=== PATIENT | male | born 1980 | race Caucasian/White ===

== ENCOUNTER → 2016-09-21 | Outpatient (CLI) | payer OTHER ==
--- NOTE | 2016-09-21 13:46 | KCIC ---
MRI sacrum and coccyx Indication: Fall 2 weeks ago with pain in the sacrum and coccyx. Multiplanar multi sequence imaging of the sacrum and coccyx was performed without contrast. There is a large amount of edema identified in the 1st coccygeal segment. The findings are consistent with a fracture. Sacrococcygeal alignment is normal. No significant displacement is seen. The canal appears to be patent. Impression: Acute fracture involving the 1st coccygeal segment without evidence of displacement. Electronically signed by: Abhilash Frederick MD (Sep 21, 2016 13:44:52)
== END | disposition home or self-care (01) ==
LOC: KCIC MRI 12:50
PROVIDERS: ATTEND Family Medicine
DX: M53.3 Sacrococcygeal disorders, not elsewhere classified (principal)
CPT/HCPCS: 72195

== ENCOUNTER → 2018-08-01 | Day surgery (SDC) | payer OTHER ==
[~2018-08-01] MED LIST: HYDROmorphone 2 MG/ML VIAL IV PRN; LIDOCAINE 1% PF 2 ML VIAL. ID PRN; MORPHINE SULFATE 4 MG/ML VIAL. IV PRN; ONDANSETRON PF 4 MG/2 ML VIAL. IV PRN; PROCHLORPERAZINE 10 MG/2 ML VIAL. IV PRN; PROPOFOL 20 ML IV ONE; RANI150T21 PO; fentaNYL PF VIAL 100 MCG/2 ML VIAL IV PRN
[2018-08-01] MEDS: IV RINGERS,LACTATED 1000ML 1,000 ML IV SCH ×2 (09:21→09:23)
[2018-08-01 10:15] VITALS: BP 123/84
--- NOTE | 2018-08-02 16:08 | PATHOLOGY ---
[facility] Accession Number: [id number] . 01 Material submitted: . DUODENAL BX . 01 Clinical history: . Abdominal pain . 02 Diagnosis: Duodenal biopsies: - Focal mild nonspecific duodenitis. (JPM:payam; 08/02/2018) QMS/08/02/2018 . 02 Comment: Sections of the duodenal biopsy reveal multiple segments of duodenal and small intestine mucosa showing focal mild chronic inflammation with a few admixed neutrophils. Where best oriented, the mucosal villi show no sprue-like changes. (JPM:payam; 08/02/2018) . 02 Electronically signed: . Kenny James MD, Pathologist NPI- [id number] . 01 Gross description: . Received in formalin labeled "Timbo Hernandez, duodenal BX's," are multiple segments of lind soft tissue measuring 2.1 x 0.4 x 0.1 cm in aggregate dimensions. The specimen is filtered and entirely submitted in cassette A1. (TSD; 08/01/2018) TOB/TOB . 02 Pathologist provided ICD-10: R10.9 . 02 CPT . 451613 Specimen Comment: A courtesy copy of this report has been sent to Specimen Comment: [phone], . Specimen Comment: Report sent to / DR HANNAH Specimen Comment: A duplicate report has been generated due to demographic updates. Performed at: 01 [facility] [address], [place] [id number] MD Quintin Donaldson MD Phone: [phone] Performed at: 02 [facility] [address] [place], [place] [id number] MD Kenny James MD Phone: [phone]
== END | disposition home or self-care (01) ==
LOC: ENDOS 05:54
PROVIDERS: ATTEND Internal Medicine Gastroenterology
DX: K29.80 Duodenitis without bleeding (principal)
CPT/HCPCS: 43239; 88305; J2704

== ENCOUNTER → 2018-08-01 | Outpatient (CLI) | payer OTHER ==
[~2018-08-01] VITALS: Ht 177.8 cm; Wt 86.2 kg
[~2018-08-01] MED LIST changes: -HYDROmorphone 2 MG/ML VIAL IV PRN; -LIDOCAINE 1% PF 2 ML VIAL. ID PRN; -MORPHINE SULFATE 4 MG/ML VIAL. IV PRN; -ONDANSETRON PF 4 MG/2 ML VIAL. IV PRN; -PROCHLORPERAZINE 10 MG/2 ML VIAL. IV PRN; -PROPOFOL 20 ML IV ONE; +SINCALIDE 1.72 MCG in IV NORMAL SALINE 50ML 30 ML IV ONE; -fentaNYL PF VIAL 100 MCG/2 ML VIAL IV PRN
--- NOTE | 2018-08-01 08:01 | RAD ---
Examination: Ultrasound abdomen complete HISTORY: History of epigastric, right upper quadrant pain COMPARISON: None available. FINDINGS: The echogenicity liver grossly appears unremarkable. The gallbladder is mildly distended. No evidence of gallstones identified. The right kidney measures 11.8 cm in length. The left kidney measures 12.1 cm in length. The pancreas is poorly visualized due to bowel gas. The spleen appears unremarkable. The visualized aorta, IVC within normal limits of dimension. IMPRESSION: 1. Unremarkable exam. Electronically signed by: Sarath Colmenares MD (08/01/2018 7:56 AM) [facility]
--- NOTE | 2018-08-01 09:55 | RAD ---
Hepatobiliary scan with gallbladder ejection fraction calculation 08/01/2018 Clinical History: Intermittent chronic right sided abdominal pain. Technique: After the intravenous administration of 5.5 mCi of technetium 99m Choletec, imaging of the right upper quadrant of the abdomen was performed using the gamma camera for 60 minutes. 1.72 mcg of CCK was infused intravenously and continued imaging of the right upper quadrant of the abdomen was performed for 30 minutes. A gallbladder ejection fraction was calculated. Findings: Normal perfusion, uptake and excretion of the radionuclide by the liver is seen. There is no evidence of cystic or common bile duct obstruction. The gallbladder is within normal limits in position and configuration. During the infusion of CCK emptying of the gallbladder is seen on the static images. The gallbladder ejection fraction is 98% which is within normal limits. Impression: Normal study Electronically signed by: Ant Piedra MD (08/01/2018 9:50 AM) [id number]
--- NOTE | 2018-08-01 10:25 | CONS ---
DATE OF CONSULTATION: 08/01/2018 REFERRING PHYSICIAN: Chris Gonzalez MD REASON FOR CONSULTATION: Abdominal pain, rule out celiac disease. HISTORY OF PRESENT ILLNESS: A 38-year-old male whose past medical history is significant for reflux, hyperlipidemia, is seen for increased pain with gluten ingestion as well as skin rashes. Weight and appetite have been stable during this. There have been no bleeding or ongoing issues. He requests additional evaluation. PAST MEDICAL HISTORY: GERD, hyperlipidemia. ALLERGIES: None. MEDICATIONS: Zantac. FAMILY AND SOCIAL HISTORY: He is a social drinker, nonsmoker. REVIEW OF SYSTEMS: As per records. PHYSICAL EXAMINATION: GENERAL: Reveals a well-nourished, well-developed male. He is alert, cooperative, in no acute distress. VITAL SIGNS: He is afebrile, pulse 70, respiratory rate 16. HEENT: Normocephalic, atraumatic head. Pupils and extraocular muscles are not tested. Sclerae anicteric. NECK: Supple. LUNGS: Clear. CARDIOVASCULAR: Reveals an S1, S2 without S3, S4 or appreciable murmur. ABDOMEN: Reveals soft abdomen, normal bowel sounds without appreciable hepatosplenomegaly. Epigastric tenderness to deep palpation. EXTREMITIES: Reveals no cyanosis, clubbing, edema. IMPRESSION: Abdominal pain, etiology to be determined, gallbladder disease and celiac certainly in differential, therefore upper endoscopy, possible biopsy. Risks and benefits of procedure including risk of hemorrhage and perforation were discussed. The patient is willing to proceed. BENJAMÍN MOONEY MD DR: KESHAV/zabrina JOB#: [id number] / [id number]
== END | disposition home or self-care (01) ==
LOC: US 05:46
PROVIDERS: ATTEND Internal Medicine Gastroenterology
DX: K21.9 Gastro-esophageal reflux disease without esophagitis (principal); R10.11 Right upper quadrant pain; Z88.8 Allergy status to other drugs, medicaments and biological substances
CPT/HCPCS: 76700; 78227; A9537; J2805